=== PATIENT | female | born 1985 ===

== ENCOUNTER 2018-03-21 11:42 | Day surgery (SDC) | payer OTHER ==
[2018-03-20 11:57] VITALS: BMI 19.5
[2018-03-21] MEDS ORDERED: Lactated Ringer's 500 ML IV ONE (12:08)
[2018-03-21 12:20] LABS: BASO # 0.1 K/uL (0.0-0.2); BASO % 1.4 % (0.0-2.0); EOS # 0.4 K/uL (0.0-0.7); HEMOGLOBIN 12.1 g/dL (12.0-16.0); LYMPH # 2.2 K/uL (1.0-4.3); LYMPH % 35.1 % (20.0-40.0); MEAN CELL VOLUME 82.6 fl (81.0-99.0); MEAN CORPUSCULAR HEMOGLOBIN 27.4 pg (27.0-31.0); MEAN CORPUSCULAR HGB CONC 33.2 g/dL (33.0-37.0); MEAN PLATELET VOLUME 8.2 fl (7.2-11.7); MONO # 0.6 K/uL (0.0-0.8); MONO % 9.8 % (0.0-10.0); NEUT % 47.7 % (50.0-75.0); NRBC % 0.1 % (0.0-0.0); RBC 4.41 Mil/uL (3.80-5.20); RED CELL DISTRIBUTION WIDTH 16.3 % (11.5-14.5); WHITE BLOOD COUNT 6.3 K/uL (4.8-10.8)
[2018-03-21] MEDS ORDERED: Propofol 10 mg/ml Inj (20 ML) ONE (12:37)
[2018-03-21] MEDS ORDERED: Lactated Ringer's 1,000 ML IV ONE (13:15)
[2018-03-21] MEDS ORDERED: Lactated Ringer's 1,000 ML IV SCH (13:30)
[2018-03-21] MEDS ORDERED: Acetaminophen IV ONE (14:05)
[2018-03-21] MEDS ORDERED: Oxycodone/Acetaminophen 5/325 mg Tab PO PRN (14:30)
--- NOTE | 2018-03-21 14:32 | CP.PCM.PN ---
Subjective - Date & Time of Evaluation Date of Evaluation: 03/21/18 Time of Evaluation: 14:31 - Subjective Subjective: [place] [employer] patient report reviewed, no CDS. Patient counseled on the risks of addiction, physical or psychological dependence, and overdose associated with opioid drugs and the danger of taking opioid drugs with alcohol and other central nervous system depressants, and cautioned patient on storage and disposal. Objective - Vital Signs/Intake and Output Vital Signs (last 24 hours): Temp Pulse Resp BP Pulse Ox 98.0 F 69 19 93/59 L 100 03/21/18 14:00 03/21/18 14:00 03/21/18 14:00 03/21/18 14:00 03/21/18 14:00 Intake and Output: 03/21/18 03/21/18 06:59 18:59 Intake Total 200 Balance 200 - Labs Labs: 03/21/18 12:14
[2018-03-21 15:33] VITALS: RESP 18
[2018-03-21 17:24] VITALS: BP 96/60; PULSE 62; TEMP 98.2; O2SAT 99
--- NOTE | 2018-03-26 15:11 | OP ---
PROCEDURE DATE: 03/21/2018 SURGEON: Jan Dutta MD ANESTHESIOLOGIST: Kwaku Rincon MD TYPE OF ANESTHESIA: General endotracheal. PREOPERATIVE DIAGNOSES: incomplete POSTOPERATIVE DIAGNOSES: incomplete PROCEDURES PERFORMED: suction d and c, ultrasoun dguided COMPLICATIONS: None. SAMPLES SENT: poc INDICATION FOR THE PROCEDURE AND CONSENT: plateauing betas , abnormal appearing sac bleeding. FINDINGS OF SURGERY: 6 week iup DESCRIPTION OF THE PROCEDURE: Initiation of the case: After adequate anesthesia was obtained, the patient was placed in the dorsal lithotomy position, and with extreme care, placement of the patient with hyperextension and hyperflexing of the hips. At this point, the patient was prepped and draped. The surgeon was gowned and gloved. A timeout was taken according to the hospital procedure and the procedure was started. An intraoperative ultrasound was performed revealing the intrauterine sac and to guide the procedure. The cervix was grasped and dilated. A 6 cm courette was insered and the cavity suctioned. No sharp curetting was required. At the end of the procedure, all tips and instrument counts were correct. The patient tolerated the procedure well and was taken to the recovery room in excellent condition. SHARITA
== END 2018-03-21 17:20 | disposition home or self-care (01) ==
LOC: H.OPSURG 11:42
PROVIDERS: ATTEND Obstetrics & Gynecology Reproductive Endocrinology
DX: O03.4 Incomplete spontaneous abortion without complication (principal)
CPT/HCPCS: 36415; 59812; 85025; 86850; 86900; 88305; J0131; J0690; J2001; J2405; J2704; J3010; J7030; J7120